=== PATIENT | male | born 1995 | race Caucasian/White ===

== ENCOUNTER 2022-11-11 09:56 | Day surgery (SDC) | payer OTHER ==
[2022-11-11] VITALS (9 sets, daily range): BP systolic 118–142; BP diastolic 55–85
[~2022-11-11] VITALS: Ht 182.9 cm; Wt 87.4 kg
--- NOTE | 2022-11-11 11:13 | NUR ---
PT TO SDS VIA W/C PRE OP TEACHING DONE, PT NPO SINCE MIDNIGHT. PARENTS AT BEDSIDE. History, Chart, Medications and Allergies reviewed before start of procedure.
--- NOTE | 2022-11-11 13:02 | NUR ---
1241 REPORT RECEIVED FROM BOBBI FUNK RN. VSS. PT ABLE TO REPOSITION SELF IN BED. PT REQUESTING PO FLUIDS AND FOOD AND TOLERATING THEM WELL. PT DENIES PAIN, NAUSEA, OR DISCOMFORT AT THIS TIME. OPERATIVE SITE ELEVATED WITH PILLOW FOR COMFORT AND MARTINE[place] WRAP IN PLACE. PT HAS BRISK CAPILLARY REFILL TO OPERATIVE SIDE TOES AND IS ABLE TO WIGGLE TOES FREELY.
--- NOTE | 2022-11-11 13:18 | NUR ---
Patient up to Ambulate independently. Gait steady. Discharge instructions reviewed with patient. Patient verbalizes understanding. Copy given to patient to take home. Dressing to procedure site clean, dry, intact with no visible drainage, swelling, erythema or bruising noted. PT BRISK CAPILLARY REFILL. PT CAN MOVE OPERATIVE SIDE TOES. Patient States Post-Procedure ride home has been arranged. Discharged via wheelchair to private car for ride home. PT BELONGINGS RETURNED TO PT.
--- NOTE | 2022-11-12 07:37 | NUR ---
11/12/22 0737 Nenita Ricks VERIFICATIONS: EDIT CHART.
== END 2022-11-11 22:54 | disposition home or self-care (01) ==
LOC: ORSCMMR 09:56 → ORD 11:15 → ORSCMMR 22:54
PROVIDERS: Podiatrist Foot & Ankle Surgery
PROC: 0QSP04Z Reposition Left Metatarsal with Internal Fixation Device, Open Approach (ICD-10-PCS; principal; 2022-11-11 11:15)
DX: S92.352A Displaced fracture of fifth metatarsal bone, left foot, initial encounter for closed fracture (principal)
CPT/HCPCS: C1713; C1769; J0690; J1100; J2001; J2250; J2405; J2704; J3010; J7120